=== PATIENT | male | born 1955 | race Caucasian/White ===

== ENCOUNTER → 2025-01-21 18:44 | Outpatient (CLI) | payer OTHER, SELFPAY ==
--- NOTE | 2025-01-21 18:45 | DI.MRI.S_ITS ---
PROCEDURE: MR PELVIS WO CON INDICATIONS: Left inguinal pudendal nerve injury TECHNIQUE: Noncontrast coronal and sagittal T1 spin echo and STIR, and axial T1 spin echo and T2 fast spin echo with fat saturation through the bony pelvis. COMPARISON: None. FINDINGS: Image quality: Excellent. Bones: Bone marrow of the pelvic ring, sacrum, and proximal femurs show normal signal throughout. No intraosseous lesions or fractures identified. The visualized lower lumbar spine appears normally aligned. Moderate degenerative changes in the hips bilaterally. 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 Partial labral ossifications. Degenerative disc disease and facet hypertrophy in the included spine. Soft tissues: No presacral mass. Piriformis muscles are symmetric in size. No mass is seen along the expected course of the pudendal nerves bilaterally. No pelvic or inguinal lymphadenopathy. No significant inguinal hernia. Multiple diverticula are seen in the colon without signs of acute diverticulitis. Prostate is normal in size. Bladder is nondistended. Visualized muscles are normal in bulk. IMPRESSION: 1. No mass or compressive lesion is seen along the course of the pudendal nerve. No significant mass , lymphadenopathy, or hernia in the left inguinal region. 2. Moderate bilateral hip osteoarthrosis. 3. Degenerative changes in the included spine. Approved by: Edwin Melendez M.D. on 01/23/2025 at 12:11
== END ==
PROVIDERS: PCP Family Medicine; Referring Provider Physical Medicine & Rehabilitation; Visit Provider Physical Medicine & Rehabilitation
DX: M54.17 Radiculopathy, lumbosacral region (principal); K57.90 Diverticulosis of intestine, part unspecified, without perforation or abscess without bleeding; G62.9 Polyneuropathy, unspecified; M16.0 Bilateral primary osteoarthritis of hip
CPT/HCPCS: 72195

== ENCOUNTER 2025-02-17 13:56 | Outpatient (CLI) | payer OTHER, SELFPAY ==
[2025-02-17] VITALS (10 sets, daily range): BP systolic 143–192; BP diastolic 78–105; PULSE 66–76; RESP 14–16; TEMP 36.6; O2SAT 95–98
[2025-02-17] MEDS: MIDAZOLAM 2 MG/2 ML VIAL IV ×2 (15:41→15:49)
[2025-02-17] MEDS: BETAMETHASONE 30 MG/5 ML MDV 12 MG INJ (15:45)
--- NOTE | 2025-02-17 16:03 | P.PCN_ITS ---
Date/Time/Diagnoses Date of procedure: 02/17/25 Time of procedure: 16:03 Pre-procedure diagnosis: 1. FORAMINAL STENOSIS WITH LE SYMPTOMS Post-procedure diagnosis: same Procedure Notes Procedure: 1. FLUOROSCOPICALLY GUIDED CONTRAST CONTROLLED TRANSFORAMINAL EPIDURAL STEROID INJECTION - Left L5/S1 Indications: Collin is referred by Dr. Figueroa for treatment of Foraminal Stenosis with Left LE Symptoms Physician: Anastacio Fontanez Total Fluoroscopy time (seconds): 11 Total sedation minutes: 16 Complications: none Procedure in detail & Post-procedure care: FINDINGS Foraminal Nerve Root Compression secondary to disc disease and facet hypertrophy DESCRIPTION OF PROCEDURE Following review of allergy and review of potential side effects and complications, including, but not necessarily limited to, infection, allergic reaction, local tissue breakdown, stroke, temporary or permanent nerve injury, paralysis, and possible , the patient indicated that the patient understood and agreed to proceed. An informed consent document was signed by the patient, witnessed by a nurse, and placed in the patient's chart. Additionally, other treatment options including medications, modalities, and physical therapy were reviewed with the patient. After review of previous anaesthesic history and IV conscious sedation the patient was deemed safe to proceed with today?s procedure with IV conscious sedation as ASA class II designation. Safety time-out was performed to confirm patient ID, procedure to be performed and site of procedure. IV sedation was accomplished with a combination of 4mg of Versed was administered by the RN after DO order, titrated to patient comfort during the course of the procedure while the patient remained responsive to all verbal commands In the prone position following sterile prep and drape of the lumbar region, the Left L5/S1 posterior neuroforamen was identified fluoroscopically. The skin was anesthetized via a 25-gauge 1.5-inch needle with 1% lidocaine solution. At this point, a 25-gauge 3.5-inch spinal needle was atraumatically introduced and advanced under fluoroscopic guidance through the posterior Left L5/S1 neuroforamen to approximately the anterior aspect of the canal. Depth was confirmed on lateral view. Following negative aspiration, injection of approximately 1.5 cc of Isovue 200 under live fluoroscopy in the AP view confirm ed excellent flow along the nerve root, into the epidural space without vascular or intrathecal uptake observed Radiological data, including multiple fluoroscopic views of the lumbosacral spine, reveal a spinal needle at the Left L5/S1 posterior neuroforamen. Subsequent views show flow of contrast material flowing superiorly and inferiorly along the nerve root confirming epidural flow. Subsequently, a test dose of 1.5cc of 0.25%marcaine solution was administered and patient was observed for two minutes for signs or symptoms of complications, including abdominal pain, shortness of breath, bilateral upper or lower extremity weakness, nausea and vomiting, prior to steroid injection. At this point, a total of 3cc or 10mg of dexamethasone and 12mg of betamethasone was injected without incident. The procedure tolerated the procedure well without signs or symptoms of complications prior to transfer to the recovery area continued monitoring without incident. The patient was then transferred to the recovery area where they were observed for an appropriate time after the injection. The patient reported a VAS score of 7 prior to the procedure and a post-procedure VAS of 0. POST OP INSTRUCTIONS The patient was provided a Pain Log to continue to record their response to the target-specific procedure prior to follow-up visit with their referring phy sician. Additionally, specific post-injection care instructions and a contact number to our office were provided if concerns arise regarding possible complications associated with the procedure are suspected.
== END 2025-02-17 16:25 | disposition home or self-care (01) ==
PROVIDERS: PCP Family Medicine; Referring Provider Physical Medicine & Rehabilitation; Visit Provider Physical Medicine & Rehabilitation
DX: M48.07 Spinal stenosis, lumbosacral region (principal); M51.17 Intervertebral disc disorders with radiculopathy, lumbosacral region; M47.27 Other spondylosis with radiculopathy, lumbosacral region
CPT/HCPCS: 64483; 99152; J0702; J1100; J2250